=== PATIENT | female | born 1970 | race Caucasian/White ===

== ENCOUNTER 2017-02-14 18:04 | Emergency (ER) | payer OTHER | END 2017-02-14 20:15 | disposition home or self-care (01) | LOC: ER 18:04 | DX: M79.604 Pain in right leg (principal); W03.XXXA Other fall on same level due to collision with another person, initial encounter; Y92.009 Unspecified place in unspecified non-institutional (private) residence as the place of occurrence of the external cause | CPT/HCPCS: 73590; 73630; 99070; 99283-25 ==